=== PATIENT | female | born 1955 | race Caucasian/White ===

== ENCOUNTER 2016-08-20 18:00 | Inpatient (IN) | payer OTHER ==
[~2016-08-20] VITALS: Ht 162.6 cm; Wt 116.4 kg
--- NOTE | ~2016-08-20 | DS ---
PATIENT'S NAME: JACQUELYN ABDI [facility] AGE: 61 Y [address] ROOM: G6325 [place], [place] [address] LOCATION: GPCU ADMIT DATE: 08/20/2016 Discharge Summary DISCHARGE DATE: 08/25/2016 FAMILY PHYSICIAN: Lee Hewitt MD ATTENDING PHYSICIAN: Leonardo Granger HISTORY OF PRESENT ILLNESS AND HOSPITAL COURSE: The patient is a 61-year-old, white female, recently readmitted for fluid volume overload after having undergone a septal myectomy with Dr. Granger secondary to hypotrophic obstructive cardiomyopathy. Upon her arrival, the patient was started on a Bumex drip. A Rosas was inserted for aggressive diuresis. The patient's findings of anemia were managed with iron and erythropoietin. The patient's recently placed dual-chamber pacemaker was interrogated with findings of normal device function. The patient was started on Tamiflu for a household exposure having occurred prior to her admission. An echocardiogram was performed to further evaluate the patient's cardiac stability. Findings were indicative for pseudomembranous VSD with acute Qp/Qs ratio of 1.28. This was discussed with Cardiology. The patient continued to be diuresed over the weekend with a weight loss of 5.4 kg from admission weight. A repeat echocardiogram was performed on August 25 to remeasure the ratio, and at this time, the Qp/Qs ratio was found to be at 1.4. The EF was noted to be at 55 to 60%. The perimembranous VSD measured at approximately 0.[address] Granger spoke to [facility] Cardiology team with regard to percutaneous closure. Dr. Granger also spoke to the patient and her with regard to transfer to [facility] for percutaneous closure. The patient and her agreed to the transfer, and on 08/25/2016, the patient was transferred to [facility] for percutaneous closure. A certificate of discharge was filled out. DISCHARGE MEDICATIONS: Include: 1. Sodium chloride 0.9% IV TKO. 2. Norvasc 2.5 mg daily. 3. Aspirin 81 mg daily. 4. Lipitor 10 mg daily. 5. Colace 100 mg twice a day. 6. Lovenox 40 mg at bedtime. 7. Levothyroxine 25 mcg daily at 7:00 a.m. 8. Lopressor 12.5 mg twice a day. 9. Potassium chloride 40 mEq 3 times a day. 10. Ambien 5 mg at bedtime. 11. Tamiflu 30 mg daily, discontinue after August 30 dose. 12. Flexeril 10 mg at bedtime. 13. Ativan 1 mg at bedtime. 14. Reglan 5 mg q.6 hours p.r.n. PATIENT'S NAME: JACQUELYN ABDI [facility] AGE: 61 Y [address] ROOM: [address] [address] [facility] ADMIT DATE: 08/20/2016 Discharge Summary DISCHARGE DATE: 08/25/2016 FAMILY PHYSICIAN: Lee Hewitt MD ATTENDING PHYSICIAN: Leonardo Granger 15. Zofran 4 mg IV q.6 hours p.r.n. 16. Oxycodone 5 mg q.4 hours p.r.n. CONDITION ON DISCHARGE: The patient was transferred to [facility] in stable condition. The patient was transferred via ground. LILLIANA BARBOZA APRN FOR LEONARDO GRANGER DO DLQ/modl /[id number] d: 09/11/16 0959 t: 09/11/16 1200, DISCHARGE SUMMARY
--- NOTE | ~2016-08-20 | ECHO ---
Transthoracic Echocardiography Report (TTE) Demographics Patient Name JACQUELYN ABDI Date of Study 08/22/2016 Patient Number [id number] Visit Number [id number] Date of 1955 Room Number G6325 Accession Number [id number] Gender Female Age 61 year(s) Referring Eva Haley Cleaner And Presser Leighann Deng [facility] Physician DO Kash Kennedy MD Physician Interpreting Vijay Hidalgo Assembler Insulator Physician Supervising Ordering Physician Eva Haley DO MD/MLP Nurse Stress Instructional Services Librarian Conclusions Summary Normal LV size and systolic function. The estimated left ventricular ejection fraction is 55-60%. s/p septal myectomy. No evidence of gradient across LVOT. There is a perimembranous VSD (measures approximately 1.4 cm) noted, Qp:Qs ratio is 1.28. RV appears dilated, it is not well visualized. Moderate tricuspid regurgitation by color Doppler.There is moderate pulmonary hypertension. The pulmonary pressure (RVSP) is 52.26 mmHg. Biatrial enlargement. Procedure Type of Study TTE procedure:2D Echocardiogram, M-Mode, Doppler , Color Doppler. Procedure Date Date: 08/22/2016 Start: 10:08 AM Study Location: Inpatient Portable Indications:Dyspnea/SOB. Additional Indications:Hx myocardial excision Patient Status: Routine Rhythm: Ventricular paced rhythm HR: 72 bpm BP: 116/59 mmHg Allergies - Iodine. - Sulfa. - Grains:(gluten). M-Mode/2D Measurements LV Diastolic Dimension: 4.24 cm LV Systolic Dimension: 2.27 cm LV Septum Diastolic: 1.36 cm LV PW Diastolic: 1.4 cm AO Root Dimension: 2.8 cm Cardiac Output: 4.65 l/min LA Dimension: 4.1 cm LVOT: 1.9 cm LVOT VTI: 22.8 cm RV Base: 2.56 cm LV Stroke volume: 64.61 ml RV Length: 5.73 cm Doppler Measurements AV Peak Velocity: 1.72 m/s MV Peak E-Wave: 1.23 m/s AV Peak Gradient: 11.83 mmHg MV Peak A-Wave: 0.99 m/s AV Mean Gradient: 7 mmHg MV E/A Ratio: 1.25 LVOT Peak Velocity: 1.17 m/s MV P1/2t: 96 msec TR Gradient:32.26 mmHg PV Peak Velocity: 1.44 m/s Estimated RAP:20 mmHg PV Peak Gradient: 8.29 mmHg Estimated RVSP: 52 mmHg Estimated PASP: 52.26 mmHg E' Septal Velocity: 0.07 m/s A' Septal Velocity: 0.05 m/s E' Lateral Velocity: 0.11 m/s A' Lateral Velocity: 0.08 m/s Qp/Qs: 1.3 Findings Left Ventricle Mild to moderate concentric left ventricular hypertrophy. VSD noted from Aortic valve to right ventricle. Right Ventricle RV appears dilated, it is not well visualized. Left Atrium The left atrium is moderately dilated. Right Atrium RA appears dilated. It is not well visualized. Mitral Valve Moderate to severe mitral annular calcification. Aortic Valve The aortic valve is moderately sclerotic. Tricuspid Valve Moderate tricuspid regurgitation by color Doppler. There is moderate pulmonary hypertension. The pulmonary pressure (RVSP) is 52.26 mmHg. Pulmonic Valve PV is grossly normal. Pericardial Effusion No evidence of pericardial effusion. Pleural Effusion No evidence of pleural effusion. Signature dtt: KAREL CHEEMA dtd: 08/22/16 1008 Physician Self Edit
--- NOTE | ~2016-08-20 | ECHO ---
Transthoracic Echocardiography Report (TTE) Demographics Patient Name JACQUELYN ABDI Date of Study 08/25/2016 Patient Number [id number] Visit Number [id number] Date of 1955 Room Number G6325 Gender Female Number Age 61 year(s) Referring Kash Kennedy MD Advisor Advocate Angel Co Founder Fracisco Dickson RVT, Physician Vijay Hidalgo RDCS, MD Physician Interpreting Vijay Hidalgo Director Sales Physician MD Supervising Ordering Eva Haley DO, MD/MLP Physician Nurse Stress Aircraft Pilot Conclusions Summary Technically difficult study to patient sitting up and not able to lay down. Limited echo done to follow up on the VSD. Normal LV size and systolic function. The estimated left ventricular ejection fraction is 55-60%. Paradoxical septal motion consistent with post operative status . RV function appears dilated with reduced function. There is a perimembranous VSD (measured approximately .81 cms). Qp:Qs ratio is 1.4. Procedure Type of Study TTE procedure:2D Echocardiogram, Echo Limited w/o Contrast. Procedure Date Date: 08/25/2016 Start: 12:37 PM Study Location: Inpatient Portable Technical Quality: Fair due to body habitus. Indications:VSD. Appropriate Use Criteria: 8 Patient Status: Routine Rhythm: Paced HR: 81 bpm BP: 106/70 mmHg Allergies - Iodine. - Sulfa. - Grains:(gluten). M-Mode/2D Measurements Cardiac Output: 7.91 l/min LVOT: 2.1 cm LVOT VTI: 28.2 cm RV Base: 4.19 cm LV Stroke volume: 97.62 ml RV Length: 8.87 cm TAPSE: 1.35 cm TDI-S': 7.46 cm/s Doppler Measurements AV Peak Velocity: 2.27 m/s AV Peak Gradient: 20.61 mmHg AV Mean Gradient: 11 mmHg LVOT Peak Velocity: 1.11 m/s PV Peak Gradient: 7.18 mmHg TR Velocity:3.38 m/s TR Gradient:45.7 mmHg Qp/Qs: 1.4 Findings Right Ventricle Dilated right ventricle with reduced function. Signature dtt: KAREL CHEEMA dtd: 08/25/16 1237 Physician Self Edit
--- NOTE | ~2016-08-20 | HP ---
PATIENT'S NAME: JACQUELYN ABDI [facility] AGE: 61 Y [address] ROOM: [place] [address] LOCATION: GPCU ADMIT DATE: 08/20/2016 History & Physical DISCHARGE DATE: 08/25/2016 FAMILY PHYSICIAN: Lee Hewitt MD ATTENDING PHYSICIAN: Leonardo Granger DATE OF SERVICE: 08/20/2016 CHIEF COMPLAINT: Fluid overload. HISTORY OF PRESENT ILLNESS: The patient is a 61-year-old white female, who is being readmitted to [facility]. She was recently discharged from [facility] following surgery for a hypertrophic cardiomyopathy. Today, the patient presented to her local ER with complaints of severe dyspnea, orthopnea, and weakness. The patient has been using Bumex for diuresis. Her sats have been less than 90% on room air. She was therefore transferred to [facility] under the care of Dr. Granger for continuum of care. 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 Surgery/procedures: x3, hysterectomy, gastric bypass, bilateral brachioplasty, abdominoplasty, cystoscopy, tonsillectomy, cholecystectomy, appendectomy, right femoral artery repair of AV fistula, bilateral stab phlebectomies of the lower extremities, heart catheterization and sternotomy with septal myectomy and placement of a dual-chamber pacemaker. ALLERGIES: IV CONTRAST, SULFA, GLUTEN; INTOLERANCES INCLUDE HYDROCODONE AND AMBIEN. SOCIAL HISTORY: The patient resides in [place]. She is self-employed. She is . She is a nonsmoker and non-alcohol consumer. She has grown children. FAMILY HISTORY: Father had history of diabetes mellitus. Mother had history of heart disease, peripheral vascular disease, and diabetes mellitus. Her siblings have history of diabetes and depression. ADMISSION MEDICATIONS: 1. Amiodarone 200 mg daily. PATIENT'S NAME: JACQUELYN ABDI [facility] AGE: 61 Y [address] ROOM: [place] [address] LOCATION: GPCU ADMIT DATE: 08/20/2016 History & Physical DISCHARGE DATE: 08/25/2016 FAMILY PHYSICIAN: Lee Hewitt MD ATTENDING PHYSICIAN: Leonardo Granger 2. Norvasc 2.5 mg daily. 3. Aspirin 81 mg daily. 4. Lipitor 10 mg at h.s. 5. Flexeril 10 mg at h.s./p.r.n. 6. Docusate sodium 100 mg twice a day. 7. Levothyroxine 25 mcg daily. 8. Metoprolol 25 mg twice a day. 9. Oxycodone 5 mg q.6 hours p.r.n. 10. Potassium chloride 40 mEq twice a day. SYSTEM REVIEW: GENERAL: The patient has been in a deconditioned state of health since discharge. She readmits with weight gain of 2.7 kg since dismissal. She has been excessively weak and fatigued. HEENT: No visual changes. She does wear corrective lenses. No hearing complaints. No difficulty swallowing. She does verbalize dehydration. RESPIRATORY: She has been with complaints of orthopnea and shortness of breath with or without activity. CARDIOVASCULAR: No chest pain, chest pressure, or palpitations. She does have edema into the bilateral lower extremities as well as some edema to the upper extremities. GI: Some intermittent nausea. No complaints of diarrhea, constipation, or vomiting. : Does have history of frequent voiding and kidney stones. MUSCULOSKELETAL: Does have generalized arthritic aches and pains in back, neck, shoulder. NEUROLOGIC: History of migraine headaches. Does complain of dizziness. PSYCHIATRIC: History of depression and anxiety, for which she is taking anxiety medication. INTEGUMENT: No known skin diseases. PHYSICAL EXAMINATION: VITAL SIGNS: Blood pressure 116/59, pulse is 64, respirations 20, temp 98.4, O2 saturations 96% on 1 L, weight is 122.4 kg, height is 162.56 cm. GENERAL: Alert, anxious. Flat affect. HEENT: Normocephalic, EOMI intact. LUNGS: Clear to diminish throughout. CARDIOVASCULAR: Regular rate and rhythm. ABDOMEN: Obese, soft, nontender by 4 quadrants with positive bowel sounds throughout. EXTREMITIES: Edema noted to bilateral upper and lower extremities at 2+ pitting. NEUROLOGIC: Alert and oriented with symmetrical strength. IMPRESSION AND PLAN: PATIENT'S NAME: JACQUELYN ABDI [facility] AGE: 61 Y [address] ROOM: [address] [address] LOCATION: GPCU ADMIT DATE: 08/20/2016 History & Physical DISCHARGE DATE: 08/25/2016 FAMILY PHYSICIAN: Lee Hewtit MD ATTENDING PHYSICIAN: Leonardo Granger 1. Fluid volume overload. 2. Diastolic congestive heart failure. 3. Peripheral edema. 4. Hypokalemia. 5. Iron deficiency anemia. Based on the labs received from the outlying facility, I will institute potassium chloride 40 mEq in addition to prescribed dose now. We will start a Bumex drip. We will administer albumin 25% q.6 hours x4 doses. We will initiate iron infusion as well as erythropoietin. We will check a pre-albumin as well as monitor serial labs. We will ask [employer] to come in and check the pacemaking device. We will get an echocardiogram and consult Cardiac Rehab. We will await further studies and make recommendations as appropriate. LILLIANA BARBOZA APRN FOR LEONARDO GRANGER DO DLQ/modl /[id number] D: [id number] T: 100 HISTORY & PHYSICAL
[~2016-08-20 18:00] MED LIST: AMBIEN10 MG PO; ASPIRIN LO-DOSE81 MG PO; ATIVAN0.5 MG/1 M PO; BENADRYL25 MG PO; BUMEX1 MG PO; COLACE100 MG PO; CORDARONE,PACE200 MG PO; COREG 3.1253.125 MG PO; DITROPAN XL10 MG PO; ELOCON45 G1 TOP; FLEXERIL10 MG PO; HAIR, SKIN & N1 EACH PO; HYDROCODON-ACE1 EAC4 PO; JUICE PLUS PO; KLOR-CON M2020 MEQ PO; LASIX20 MG PO; LEVOTHROID (SY25 MCG PO; LEVOTHROID(SYN75 MCG PO; LIPITOR10 MG PO; LOPRESSOR25 MG PO; LOPRESSOR50 MG PO; LOSARTAN-HCTZ1 EAC1 PO; MELATONIN10 M2 PO; MELATONIN10 MG PO; MS CONTIN15 MG PO; NORPACE100 MG PO; NORVASC10 MG PO; PERCOCET 5-3251 EACH PO; PERCOCET 7.5-31 EACH PO; ROXICODONE 5MG (5 MG PO; SENOKOT S (S1 TABLET PO; ULTRAM50 MG PO; VITAMIN D35000 UNI1 PO
[2016-08-20] MEDS ORDERED: ONDANSETRON ODT4 MG SL (19:18)
--- NOTE | 2016-08-20 19:58 | NUR ---
PATIENT WAS DIRECT ADMIT FROM SECRETARY VIA [facility]. VSS. IV INTACT TO RIGHT FOREARM. PATIENT CAME IN WITH RECENT WEIGHT GAIN, INCREASED EDEMA TO LOWER EXTREMITIES, AND SHORTNESS OF BREATH ESPECIALLY WHEN LAYING DOWN. PATIENT HAS A HISTORY OF RECNT CABG AND PACEMAKER PLACEMENT. DOCTOR GRANGER NOTIFIED OF PATIENT ARRIVAL TO FLOOR AND FAMILY AWARE OF THE ADMISSION.
[2016-08-20 21:46] LABS: BILIRUBIN URINE NEGATIVE (NEGATIVE); BLOOD URINE NEGATIVE /UL (NEGATIVE); COLOR URINE YELLOW (YELLOW); GLUCOSE URINE NEGATIVE (NEGATIVE); KETONE URINE NEGATIVE (NEGATIVE); LEUKOCYTES URINE NEGATIVE /UL (NEGATIVE); NITRITE URINE NEGATIVE (NEGATIVE); PROTEIN URINE NEGATIVE (NEGATIVE); SPEC GRAVITY URINE 1.015 (1.003-1.035); TURBIDITY URINE CLEAR (CLEAR); UROBILINOGEN URINE 1 mg/dL (NORMAL)
--- NOTE | 2016-08-21 04:41 | NUR ---
Significant Event: PATIENT A/O X3 BUT ANXIOUS AT TIMES. VSS. HR 60'S IN PACED RHYTHM. SBP 100-110'S. AFEBRILE. 02 SATS IN MID TO UPPER 90'S DOWN TO RA NOW. C/O PAIN IN BACK OF NECK AND BACK. ROXICODONE GIVEN X2 WITH SOME RELIEF. LUNGS CLEAR THROUGHOUT. VERY SOB WITH ACTIVITY AND C/O ORTHOPNEA. UNABLE TO SLEEP BECAUSE SHE REQUIRES HOB TO BE SO HIGH. UP WITH 1-2A WITH WALKER/GB. C/O WEAKNESS. C/O DECREASED APPETITE. ATE PEICE OF TOAST AND HAD FULL ENSURE. CHECKED BLOOD SUGAR AFTER ENSURE AND IT WAS 225. PATIENT SAYS SHE DOESN'T TOLERATE BEING THAT HIGH AND HAD C/O NASUEA. ZOFRAN GIVEN X1 WITH RELIEF. TOTH INTACT WITH 1000 ML URINE OUTPUT. RECENT CABG AND PACEMAKER PLACEMENT. EDGES APPROXIMATED AND INCISIONS HEALING. HAS SOME REDNESS TO ABDOMINAL FOLDS. RIGHT TO RIGHT FOREARM WITH INTERMITTENT ALBUMIN AND FERRIC GLUCONATE. IV TO LEFT HAND WITH BUMEX AND 0.3MG/HR AND NS TKO. VERY HARD STICK. CONTINUES TO HAVE 2-3+ LOWER EXTREMITY EDEMA. Follow up: CONTINUE TO MONITOR PER PLAN OF CARE.
[2016-08-21 05:40] LABS: ALBUMIN 3.6 gm/dL (3.5-5.0); ANION GAP 11.6 (10.0-19.0); CALCIUM 8.7 mg/dL (8.5-10.5); CREATININE 1.4 mg/dL (0.5-1.1); POTASSIUM 2.6 mMol/L (3.7-5.1); TOTAL BILIRUBIN 0.9 mg/dL (0.0-1.5); TOTAL PROTEIN 6.7 g/dL (6.0-8.4)
--- NOTE | 2016-08-21 12:53 | NUR ---
reviewed student charting karen pinon-ccc
--- NOTE | 2016-08-21 12:59 | NUR ---
A-NUTRITION CONSULT RECEIVED ADMITTED W/INCREASING EDEMA. S/P RECENT CABG/PACEMAKER PLACEMENT. MED HX: GASTIC BYPASS HT: 5'4" WT: 122.4 KG. PT REPORTS UBW 240 LBS (109 KG) BMI: 46.3 LABS: NA 137, K+ 2.6, GLU 119, BUN 39, BOATHOUSE KEEPER 1.4, ALB 3.6, PREALB 11.0 MEDS: EFFEXOR, ROXICODONE, K-TAB, COLACE, FLEXERIL, ZOFRAN, IV BUMEX, TAMIFLU, AND FERRLECIT DIET RX: CARDIAC/1500 ML FLUID RESTRICTION. PT STATES, "I JUST DON'T FEEL LIKE EATING, BUT I TRY BECAUSE I KNOW I NEED THE PROTEIN TO HEAL." VISITED W/PT RE: GLUTEN ALLERGY. PT ASKED FOR MEATBALLS, WAS TOLD THEY HAVE GLUTEN IN THEM, BUT SHE SAID SHE WAS OKAY WITH THE LITTLE BIT IN THEM. PT WAS GIVEN THE MEATBALLS, PER HER REQUEST. PT SAYS SHE HAS BEEN DX WITH A GLUTEN SENSITIVITY. WILL PUT A NOTE THAT IF PT REQUESTS AN ITEM W/GLUTEN, THAT SHE BE ALLOWED TO HAVE IT; PT WAS AGREEABLE TO THIS PLAN. DISCUSSED SUPPLEMENT OPTIONS WITH PT. PT AND PT'S REPORT THAT SHE DRINKS A JUICE+ PROTEIN SUPPLEMENT AT HOME AND HER WILL BRING THAT IN FOR HER TO DRINK. OFFER ENSURE ENLIVE OR GLUCERNA, BUT PT AND DECLINE. PT FOLLOWS A LOW SUGAR DIET AT HOME D/T DUMPING SYNDROME R/T GASTRIC BYPASS. ENCOURAGED PT TO ORDER 6 SMALL MEALS THROUGHOUT THE DAY VS 3 LARGE MEALS; PT WAS AGREEABLE TO TRYING THIS. PT DOES NOT DRINK MILK OR EAT ICE CREAM D/T ISSUES R/T GASTRIC BYPASS. SHE CAN TOLERATE CHEESE AND YOGURT. EST NUTR NEEDS: [id number] KCALS (11-14 KCALS/KG) 81-108 GM PROTEIN (1.5-2.0 GM/KG IBW) FLUIDS PER MD I-AT NUTRITION RISK W/INCREASED NUTRIENT NEEDS R/T HEALING AEB RECENT CABG/ PACEMAKER PLACEMENT. PT ALSO AT NUTRITION RISK W/INADEQUATE INTAKE OF NUTRIENTS R/T DECREASED ORAL INTAKE, GASTRIC BYPASS AEB PT REPORT, INTAKE RECORDS. D-1)6 SMALL MEALS/DAY 2)TRY CALIN BID AND SEE IF PT TOLERATES 3)WILL ADD NO MILK TO DRINK OR ICE CREAM TO EAT M/E-GOAL: PO INTAKE >/=50% BY NEXT F/U 1)F/U PO INTAKE, SUPPLEMENT, AND POC IN 4-5 DAYS 2)ASSIST NEEDED
--- NOTE | 2016-08-21 15:59 | NUR ---
Introduced self and role of care management to pt and her . She states she went home and wasn't eating well or getting up and moving around much and needed assistance. did ask questions regarding hhc and swingbed. I explained it is based on therapy an what is needed and will need approved by insurance or we look at home again. PT then started not to feel well and getting dizzy and lightheaded. I did notify pt's nurse Raissa and Cass RN. At this time will talk at a later time regarding dc needs. I will place a note for pt/ot when appropriate.
--- NOTE | 2016-08-21 17:07 | NUR ---
Significant Event: AOx3, SBP 100s-120s, tachypneic at times. Dyspneic, 2+ pitting edema. Rosas patent draining copious amounts of urine. Lungs clear, dim to bases bilat. Initial dosed Effexor and Ativan today. Approx 35 minutes later, patient c/o sudden onset of nausea, feeling "jittery", a metallic taste in her mouth, and her face feeling "funny". Dr Velasquez notified; thought to be side effects of Effexor. Zofran given, with eventual relief. Nausea returned accompanied by epigastric pain at approx 1615. Zofran given, patient reported no relief. Dr Velasquez notified and order for Reglan received, and dose to be given soon. Refused echocardiogram and cardiac rehab this afternoon due to not feeling well enough to tolerate. RD saw today and discussed ways to increase nutritional intake. Patient continues to struggle with decreased appetite. at bedside. Patient is pleasant, cooperative, and appreciative of cares. Follow up: Monitor nausea and epigastric pain. Continue to encourage intake of protein.
--- NOTE | 2016-08-22 04:50 | NUR ---
Significant Event: PATIENT IS A/O X3. MORE DROWSY THIS SHIFT BUT SLEPT WELL. VSS. HR 60-70'S PACED RHYTHM. SBP 100-120'S. AFEBRILE. 02 SATS IN MID 90'S BETWEEN RA AND 1L 02 CURRENTLY ON 1L. DESATS WITH SLEEP. LUNGS CLEAR/DIM THROUGHOUT. UP WITH SBA WITH WALKER/GB TO RESTROOM. SM BM X1. C/O ON/OFF NAUSEA BUT IMPROVED AFTER 1 DOSE IVP REGLAN. REFUSED PAIN MEDS. RATED PAIN AT 3/10. TOTH INTACT WITH 2375ML UOP. STERNAL/LEFT SUBCLAVIAN INCISIONS INTACT. RIGHT FOREARM IV SL AND LEFT IV WITH NS AT TKO AND BUMEX GTT AT 0.3 MG/HR. CONTINUES TO HAVE 2+ EDEMA TO LOWER EXTREMITIES. Follow up: CONTINUE TO MONITOR PER PLAN OF CARE.
[2016-08-22 07:53] LABS: ALBUMIN 3.9 gm/dL (3.5-5.0); CALCIUM 9.3 mg/dL (8.5-10.5); CREATININE 1.3 mg/dL (0.5-1.1)
[2016-08-22 07:54] LABS: ANION GAP 8.9 (10.0-19.0); POTASSIUM 2.9 mMol/L (3.7-5.1)
--- NOTE | 2016-08-22 19:13 | NUR ---
Significant Event: AOx3, tachypneic at times, requires 1-2 L O2 most of the day to keep sats >90%. Bumex gtt continues without complication and edema is noticeably improved from yesterday. Rosas catheter replaced this afternoon as it was not draining and patient was experiencing bladder spasms and pain. Dr Velasquez consulted regarding this. Sleepy after a.m. dose ativan; expresses wishes for it to be reduced for p.m. and d/c'd for a.m. Ambulates with 1PA and walker and becomes dyspneic but tolerates. IV iron without complication. Pleasant and cooperative with cares. Follow up: Continued pain control, encourage increased protein intake and increased activity.
--- NOTE | 2016-08-23 04:35 | NUR ---
Significant Event: A/0 X 3, AFFECT VERY FLAT. VSS, HR PACED 60-70'S, SBP 100'S TO 130'S. AFEBRILE. 02 AT 1L. BUMEX GTT AT 0.3 MG/HR, HAD 1500 ML UOP. LUNGS HAVE CRACKLES BILATERAL BASES. PATIENT VERY ORTHOPNEIC, CANNOT LIE DOWN AT ALL. ROXYCODONE GIVEN X 2 LAST AT 0330 WITH RELIEF NOTED. REGLAN GIVEN AT 2100 FOR NAUSEA WITH NO EMESIS. APPETITE REMAINS POOR. NEED TO ENCOURAGE AMBULATION. Follow up:
[2016-08-23 11:48] LABS: ALBUMIN 3.6 gm/dL (3.5-5.0); CALCIUM 8.7 mg/dL (8.5-10.5); CREATININE 1.4 mg/dL (0.5-1.1); PHOSPHORUS 3.1 mg/dL (2.5-4.9)
[2016-08-23 12:00] LABS: ANION GAP 13.9 (10.0-19.0); POTASSIUM 2.9 mMol/L (3.7-5.1)
--- NOTE | 2016-08-23 15:47 | NUR ---
Significant Event: PT A/O X3. VSS. ON RA SATS >90%. UP IN LEÓN AND IN ROOM WITH 1 ASSIST, GAIT BELT AND WALKER, TOLERATES FAIR, STATES SHE IS "TOO WEAK TO GO TOO FAR." CONTINUES TO HAVE POOR APPETITE. PT/OT CONSULTED TODAY. DC'D AMIODARONE PATIENT FEELS THIS MAY BE CAUSE OF DECREASED APPETITE. WILL HAVE RENAL PANEL IN AM. GAVE EXTRA 40MEQ PO K+ FOR A K+ OF 2.9. TOTH DC'D UP TO BATHROOM WITH NO TROUBLE TO VOID. BUMEX GTT CONTINUES. GAVE DOSE OF IV IRON PER ANEMIA PROTOCOL TODAY. ROXICODONE GIVE X1 AT 7:25 FOR C/O HEADACHE WITH RELIEF. STERNAL INCISION APPROXIMATED, SCABBED AND HEALING, L) SUBCLAVIAN PACER SITE HEALING WELL ALSO. RESTING COMFORTABLY IN BED OF THIS NOTE. Follow up:
[2016-08-24 04:04] LABS: ALBUMIN 3.6 gm/dL (3.5-5.0); ANION GAP 10.2 (10.0-19.0); CALCIUM 8.7 mg/dL (8.5-10.5); CREATININE 1.4 mg/dL (0.5-1.1); PHOSPHORUS 3.9 mg/dL (2.5-4.9); POTASSIUM 3.2 mMol/L (3.7-5.1)
--- NOTE | 2016-08-24 04:30 | NUR ---
A/O. HR 70s. SBP 90-110s. INITIATED 2L O2 NC WHILE SLEEPING. AFEBRILE. BUMEX GTT AT 0.3MG/HR. 1150ML UOP. 1 ASSIST TO BATHROOM. ROXIx2 FOR NECK/BACK PAIN. FLEXIRILx1. ATIVANx1. ZOFRANx1. LG BMx1. CURRENTLY SLEEPING IN RECLINER.
--- NOTE | 2016-08-24 15:44 | NUR ---
Significant Event: AOx3, SBP 98-113, VS otherwise WNL on RA-2L O2. R) leg slightly more edematous than L) but both are improved. Bumex gtt continues without complication. Up frequently to restroom with SBP to minimal assist, tolerating well. UOP 1950 this shift. Fluid restriction observed. Has eaten 50-75% of meals today and has brought snacks as well. Zofran x1 for c/o nausea with relief. No c/o pain or request for pain meds as of this time. Amublated in hallway approx 20 ft, improvement over yesterday. Pleasant and cooperative with cares. Follow up: Increase activity, and per plan of care.
--- NOTE | 2016-08-25 05:03 | NUR ---
Significant Event: Patient is alert/oriented x3. Vital signs stable. SBP's have been 106-120. On room air. At one point in the night, patient did require 1L O2 but she refused to keep it on. Spot-checked O2 sats and she did remain > 90% on room air. Oxycodone and Flexeril for back pain. Bumex drip continues at 0.3 mg/hr. Patient had 2100 mL UOP. Ambulated x1 in halls with daughter prior to bedtime. Sternal and pacemaker incisions open to air and healing well. Follow up: Continue to monitor per plan of care.
[2016-08-25 05:51] LABS: BASOPHIL % 0.5 %; EOSINOPHIL # 0.3 K/uL (0.0-0.5); EOSINOPHIL % 3.4 %; HEMATOCRIT 30.8 % (33.0-46.0); IMMATURE GRANULOCYTE # 0.1 K/uL (0.0-0.3); IMMATURE GRANULOCYTE % 1.1 %; LYMPHOCYTE # 1.4 K/uL (0.8-4.0); MCH 24.3 pg (27.0-34.0); MCHC 29.2 gm/dL (32.0-36.5); MCV 83.2 fl (83.0-98.0); MONOCYTE # 0.5 K/uL (0.0-1.0); MONOCYTE % 7.2 %; MPV 9.6 fl (9.4-12.4); NEUTROPHIL % 68.8 %; NRBC % 0.3 /100WBC (0-0.00); WBC 7.3 K/uL (4.0-11.0)
[2016-08-25 05:52] LABS: PLATELET COUNT 396 K/uL (150-450); RDW-CV 19.6 % (11.9-14.6)
[2016-08-25 11:52] LABS: ALBUMIN 3.5 gm/dL (3.5-5.0); ANION GAP 12.5 (10.0-19.0); CALCIUM 8.7 mg/dL (8.5-10.5); CREATININE 1.3 mg/dL (0.5-1.1); PHOSPHORUS 3.8 mg/dL (2.5-4.9); POTASSIUM 3.5 mMol/L (3.7-5.1)
--- NOTE | 2016-08-25 12:00 | NUR ---
Supportive visit with pt and . They are just waiting for the plans for the next step. At this time denies any questions or concerns.
--- NOTE | 2016-08-25 13:57 | NUR ---
A-NUTRITION F/U STERNAL AND PACEMKER INCISIONS HEALING; OPEN TO AIR LABS: NA 139, K+ 3.5, GLU 167, BUN 33, OR DIRECTOR 1.3 MEDS: AMBIEN, ATIVAN, ADRENALIN, SOLUCORTEF DIET RX: CARDIAC DIET W/1500 ML FLUID RESTRICTION. CALIN BID. PO INTAKE HAS BEED REFUSALS-100%; AVG 49% PT'S IS BRINGING IN SNACKS ALSO. EST NUTR NEEDS: 3043-0115 KCALS AND 81-108 GM PROTEIN D-AT NUTRITION RISK W/INADEQUATE INTAKE OF NUTRIENTS R/T POOR APPETITE, GASTRIC BYPASS, DUMPING BYPASS AEB INTAKE RECORDS, PT REPORT. I-CONTINUE W/CALIN BID TO PROMOTE WOUND HEALING M/E-GOAL: PO INTAKE >/=50% BY NEXT F/U 1)F/U PO INTAKE, SUPPLEMENT, AND POC IN 3-5 DAYS 2)ASSIST NEEDED
--- NOTE | 2016-08-25 15:55 | NUR ---
AOx3, SBP 100s-110s, afebrile, hr 70s-80s, rr 14-20, O2 sats low-mid 90s on room air while awake, 1 L O2 while asleep. Lungs dim to bases, occasional wheezes. Vent paced. Edema to bilat ankles 2+, generalized 1+ edema. Bowel sounds active. Voiding well with 1500 ml out this shift, due to bumex gtt which is now d/c'd. SL to L) hand has good blood return. Sternal incision and L) subclavian pacemaker incision both are healing with approximated edges. C/o pain to back and neck with roxicodone 5 mg given x1, relief noted. Zofran x2 for c/o nausea with relief noted. Patient encouraged to eat several small meals per day d/t decreased appetite and hx of gastric bypass. Ambulates with minimal standby assist, tires but otherwise tolerates well. Sternal precautions. Anxious at times. Severe orthopnea; does not tolerate being reclined or lying flat for any amount of time at all. Very pleasant and cooperative.
--- NOTE | 2016-08-25 16:21 | NUR ---
Significant Event: AOx3, VS WNL on room air. Edema 2+ to ankles bilat but resolving well from previous. Bumex gtt d/c'd this afternoon. 1500 ml UOP. Small appetite and becomes nauseous easily. Zofran given x2 with relief. C/o pain to back and neck; olman given x1 this afternoon with excellent relief. K+ remains low and is being replaced. Ambulates with minimal SBA, tires but otherwise tolerates. at bedside throughout day is helpful with cares. Very pleasant and cooperative. Follow up: Plan is transfer to [facility], if bed available, or tomorrow for necessary heart procedure.
== END 2016-08-25 20:00 | disposition critical access hospital (66) | DRG 292 ==
LOC: GPCU 18:52
PROVIDERS: Nurse Practitioner Women's Health; ADMIT Thoracic Surgery (Cardiothoracic Vascular Surgery)
DX: I50.31 Acute diastolic (congestive) heart failure (principal); E44.1 Mild protein-calorie malnutrition; I42.1 Obstructive hypertrophic cardiomyopathy; Z79.01 Long term (current) use of anticoagulants; Z68.42 Body mass index [BMI] 45.0-49.9, adult; K91.1 Postgastric surgery syndromes; I10 Essential (primary) hypertension; Z86.718 Personal history of other venous thrombosis and embolism; D50.9 Iron deficiency anemia, unspecified; E66.9 Obesity, unspecified; M19.90 Unspecified osteoarthritis, unspecified site; G89.29 Other chronic pain; E07.9 Disorder of thyroid, unspecified; Z95.0 Presence of cardiac pacemaker; E87.6 Hypokalemia
CPT/HCPCS: J0171; J1200; J1650; J1720; J2405; J2765; J2916; J7030; J7040; J7050; P9047; Q4081